=== PATIENT | male | born 1975 | race Caucasian/White ===

== ENCOUNTER 2018-10-15 21:20 | Emergency (ER) | payer OTHER ==
[~2018-10-15] VITALS: Ht 162.6 cm; Wt 81.6 kg
[2018-10-15 21:30] VITALS: BP 126/90
--- NOTE | 2018-10-15 22:00 | NUR ---
PT PRESENTED TO ER WITH CELLULITIS ON RIGHT DORSAL OF HAND AND RIGHT ELBOW. STATES IT APPEARED 1 WEEK AGO. PT DENIES ANY PAIN. COMPLAINS OF MILD IRRITATION. DR BENTON AWARE. WILL CONTINUE TO MONITOR.
[2018-10-15] MEDS ORDERED: SULFAMETH/TRIMETH DS 800/160MG 1 TAB PO ONE (22:20)
[2018-10-15] MEDS ORDERED: CEPHALEXIN 500 MG CAP PO ONE (22:20)
[2018-10-15] MEDS ORDERED: INSULIN REGULAR, HUMAN 100 UNIT/ML VIAL SUBQ ONE (22:30)
[2018-10-15] MEDS ORDERED: NACL 0.9% 1,000 ML IV ONE (22:30)
--- NOTE | 2018-10-15 23:00 | NUR ---
PT IS IN BED. NO COMPLAINS OF PAIN. PT TOLERATING IV FLUIDS. VSS. WILL CONTINUE TO MONITOR.
[2018-10-15 23:07] LABS: BASOPHILS % (AUTO) 0.4 % (0.0-2.0); EOSINOPHILS # (AUTO) 0.1 K/uL (0-0.4); EOSINOPHILS % (AUTO) 1.8 % (0.0-4.0); HEMOGLOBIN 16.1 g/dL (12.0-18.0); LYMPHOCYTES # (AUTO) 2.7 K/uL (2.0-11.5); LYMPHOCYTES % (AUTO) 34.5 % (20.5-51.1); MEAN CORPUSCULAR HEMOGLOBIN 32 pg (27-31); MEAN CORPUSCULAR HGB CONC 34 g/dL (33-37); MEAN CORPUSCULAR VOLUME 92.2 fL (80-94); MONOCYTES # (AUTO) 0.2 K/uL (0.8-1.0); MONOCYTES % (AUTO) 3.1 % (1.7-9.3); NEUTROPHILS # (AUTO) 4.7 K/uL (1.8-7.7); NEUTROPHILS % (AUTO) 60.2 % (42.2-75.2); PLATELET COUNT (AUTO) 248 K/uL (140-450); RED CELL DISTRIBUTION WIDTH 13.6 % (11.6-13.7); WHITE BLOOD COUNT (AUTO) 7.9 K/uL (4.8-10.8)
[2018-10-15 23:23] LABS: ANION GAP 10.3 (8-16); CARBON DIOXIDE 28.7 mmol/L (21-32); CREATININE 0.8 mg/dL (0.7-1.3); TOTAL BILIRUBIN 0.5 mg/dL (0.0-1.0)
[2018-10-15] MEDS ORDERED: POTASSIUM CHLORIDE 10 MEQ TABER PO ONE (23:30)
--- NOTE | 2018-10-16 00:05 | NUR ---
PT PROVIDED WITH DISCHARGE PAPERWORK. RX OF KEFLEX AND BACTRIM GIVEN. EDUCATED PT REGARDING MEDICATIONS AND SIDE EFFECT. EDUCATED PT ABOUT BEING COMPLIANT TO MEDICATION REGIMEN. PT VSS. TOLD PT TO FOLLOW UP WITH PCP AND WHEN TO RETURN TO ER.
[2018-10-16 00:08] VITALS: BP 113/71
== END 2018-10-16 00:05 | disposition home or self-care (01) ==
LOC: MED 21:20
DX: S50.361A Insect bite (nonvenomous) of right elbow, initial encounter (principal); L08.9 Local infection of the skin and subcutaneous tissue, unspecified; E11.65 Type 2 diabetes mellitus with hyperglycemia; E87.6 Hypokalemia; R74.0 Nonspecific elevation of levels of transaminase and lactic acid dehydrogenase [LDH]; F10.10 Alcohol abuse, uncomplicated; Z76.0 Encounter for issue of repeat prescription; W57.XXXA Bitten or stung by nonvenomous insect and other nonvenomous arthropods, initial encounter; Y93.89 Activity, other specified; Y92.89 Other specified places as the place of occurrence of the external cause; Y99.8 Other external cause status
CPT/HCPCS: 36415; 80053; 82948; 85025; 96361; 96374; 99284; J1815; J7030